=== PATIENT | male | born 1955 | race Caucasian/White ===

== ENCOUNTER 2016-12-07 10:11 | Day surgery (SDC) | payer BC ==
--- NOTE | 2016-12-06 07:56 | HP ---
DATE OF SURGERY: 12/07/2016 ADMISSION DIAGNOSIS: Hemorrhoids and a mole. ANTICIPATED PROCEDURE: Hemorrhoidectomy and removal of a mole. HISTORY OF PRESENT ILLNESS: PAST MEDICAL HISTORY: ALLERGIES: NONE. MEDICATIONS: Crestor, Plavix, Toprol, finasteride. PAST SURGICAL HISTORY: Hernia surgery, gallbladder, heart stent. SOCIAL HISTORY: Negative. FAMILY HISTORY: Negative. REVIEW OF SYSTEMS: Cardiac disease. PHYSICAL EXAMINATION: VITAL SIGNS: Normal. CHEST: Clear. COR: Regular. PLAN: Hemorrhoidectomy and removal of a mole.
[2016-12-07] MEDS ORDERED: MEFOXIN 2 GM PREMIX** 2 GM/50 ML ML IV ONE (10:25)
[2016-12-07] MEDS ORDERED: Lactated Ringers 1,000 ML IV SCH (10:30)
[2016-12-07] MEDS ORDERED: Lactated Ringers 1,000 ML IV ONE (10:51)
[2016-12-07] MEDS ORDERED: ANUSOL-HC 2.5% CREAM 30 GM ONE (12:11)
[2016-12-07] MEDS ORDERED: EXPAREL 266 MG/20 ML VIAL IJ ONE (15:23)
[2016-12-07] MEDS ORDERED: ROBINUL IV ONE (15:23)
[2016-12-07] MEDS ORDERED: Zofran 4 MG/2 ML VIAL IV ONE (15:23)
[2016-12-07] MEDS ORDERED: DILAUDID 2 MG INJECTION IV ONE (15:23)
[2016-12-07] MEDS ORDERED: SUBLIMAZE 100 MCG/2 ML IV ONE (15:23)
[2016-12-07] MEDS ORDERED: DIPRIVAN 200 MG/20 ML IV ONE (15:23)
[2016-12-07] MEDS ORDERED: Decadron 4 MG INJ IV ONE (15:23)
[2016-12-07 15:43] VITALS: BP 125/79; PULSE 63; O2SAT 94
--- NOTE | 2016-12-08 07:37 | OP ---
SURGERY DATE/TIME: 12/07/2016 1259 PREOPERATIVE DIAGNOSIS: Hemorrhoids refractory to medical care. POSTOPERATIVE DIAGNOSIS: Hemorrhoids refractory to medical care. PROCEDURE: Complex hemorrhoidectomy three internal and three external. SURGEON: Angelito Stubbs M.D. ANESTHESIA: General. COMPLICATIONS: None. CONDITION: Stable. INDICATION: A 61 year-old with severe hemorrhoids. DESCRIPTION OF PROCEDURE: He was taken to surgery. Exam under anesthesia. Internal and external. He had five at 7:00 and 11:00. The 5:00, 11:00 taken both internal and external with Alices, with clamps, with over and under sutures and excision. The 7:00 external was totally excised and the 7:00 internal was banded. Long lasting Marcaine was placed. The patient tolerated the procedure satisfactory. Findings discussed with the family in the waiting area.
== END 2016-12-07 15:45 | disposition home or self-care (01) ==
LOC: SDC 10:11
PROVIDERS: ATTEND Surgery
PROC: 06LY4CC Occlusion of Hemorrhoidal Plexus with Extraluminal Device, Percutaneous Endoscopic Approach (ICD-10-PCS; principal; 2016-12-07)
PROC: 0DBQXZZ Excision of Anus, External Approach (ICD-10-PCS; 2016-12-07)
DX: K64.4 Residual hemorrhoidal skin tags (principal); K64.8 Other hemorrhoids
CPT/HCPCS: 00902; 36415; 46221; 88304; J0694; J1100; J1170; J2405; J2704; J3010; A9270-GY